=== PATIENT | male | born 1930 | race Caucasian/White ===

== ENCOUNTER 2016-09-11 11:55 | Inpatient (IN) ==
--- NOTE | 2016-09-11 12:07 | Emergency Department Note ---
General Adult HPI - General Chief complaint: Blood Pressure Problem Stated complaint: increased confusion, hypotensive Time Seen by Provider: 09/11/16 12:05 Source: other Mode of arrival: wheelchair Limitations: no limitations - History of Present Illness HPI Narrative: 87-year-old male with a history of stage IV CKD just seen at Dr. Horta's office today and referred over to the ED due to decreased level consciousness and hypotension. They had gotten blood pressures in the 70s at the time however his initial blood pressure at this time is 98 systolic. Does have a history of dementia is difficult to get a good history patient denies any signs or symptoms denies any nausea vomiting his tongue does look dry does appear to be volume depleted patient is afebrile, denies any nausea vomiting or diarrhea patient denies chest pain or shortness of breath, patient is a DNR - Related Data Home Medications Medication Instructions Recorded Confirmed carbidopa 25 mg-levodopa 100 mg 1 tab PO TID 06/11/16 09/11/16 tablet ergocalciferol (vitamin D2) 50,000 50,000 unit PO MOTH@0900 06/11/16 09/11/16 unit capsule furosemide 40 mg tablet 40 mg PO DAILY 06/11/16 09/11/16 insulin glargine 100 unit/mL 37 unit SUB-Q QAM ml 06/11/16 09/11/16 subcutaneous solution metolazone 2.5 mg tablet 2.5 mg PO MOTH@0830 06/11/16 09/11/16 Bisacodyl [Dulcolax] 10 mg MS DAILYP PRN 09/11/16 09/11/16 Isosorbide Mononitrate [Isosorbide 120 mg PO DAILY 09/11/16 09/11/16 Mononitrate ER] Magnesium Oxide 420 mg PO DAILY 09/11/16 09/11/16 Polyvinyl Alcohol [Artificial 1 drop OP QIDP PRN 09/11/16 09/11/16 Tears] Sennosides [Senna] 17.2 mg PO BID 09/11/16 09/11/16 aspirin 81 mg tablet,delayed 81 mg PO QDAY tab 09/11/16 09/11/16 release bisacodyl 5 mg tablet 5 mg PO DAILYP PRN 09/11/16 09/11/16 carvedilol 3.125 mg tablet 6.25 mg PO BIDCC tab 09/11/16 09/11/16 finasteride 5 mg tablet 5 mg PO HS 09/11/16 09/11/16 lisinopril 2.5 mg tablet 2.5 mg PO QDAY 09/11/16 09/11/16 omeprazole 40 mg capsule,delayed 40 mg PO BIDAC cap 09/11/16 09/11/16 release ondansetron HCl 4 mg tablet 4 mg PO Q8HP PRN tab 09/11/16 09/11/16 promethazine 25 mg tablet 25 mg PO DAILYP PRN tab 09/11/16 09/11/16 sertraline 100 mg tablet 100 mg PO HS 09/11/16 09/11/16 tamsulosin 0.4 mg capsule 0.4 mg PO DAILY 09/11/16 09/11/16 vit C 150 mg-vit E 30 unit-lutein 1 cap PO DAILY 09/11/16 09/11/16 5 zt-[id number] 3 150 mg capsule Allergies Allergy/AdvReac Type Severity Reaction Status Date / Time acetaminophen [From Tylenol] Allergy Unknown Unknown Unverified 09/11/16 11:30 iodine Allergy Unknown Unknown Unverified 09/11/16 11:30 nitroglycerin Allergy Unknown Unknown Unverified 09/11/16 11:30 sulfamethoxazole Allergy Unknown Unknown Verified 09/11/16 16:37 [From Bactrim] trimethoprim [From Bactrim] Allergy Unknown Unknown Verified 09/11/16 16:37 sulfameth/trimetrhoprom Allergy Unknown Unknown Uncoded 09/11/16 11:30 Review of Systems All systems ED: reviewed and negative except as stated. Constitutional: Denies: fever, chills Eyes: Denies: eye pain ENT ED: Denies: ear pain Cardiovascular: Denies: chest pain Respiratory: Denies: cough Past Medical History - Past Medical History [facility] Narrative: Family History (Last Reviewed 09/11/16 @ 11:57 by Tiny Horta MD) Mother Diabetes mellitus, type II Grandmother Diabetes mellitus, type II Sister Cancer Brother Diabetes mellitus, type II Medical History (Last Reviewed 09/11/16 @ 11:57 by Tiny Horta MD) Chronic kidney disease, stage 4 (severe) (Chronic) Macular degeneration (Chronic) Cataracts, bilateral (Chronic) Diabetes mellitus, type II (Chronic) HTN (hypertension) (Chronic) Medical history: Reports: other Surgical history ED: Reports: other (Cardiac heart stent, shoulder surgery, CABG ,) Family history: Reports: other family history (Diabetesmother. Sister cancer brother diabetes) - Social History smoking status: Never smoker Alcohol use: Reports: None Drug use: Reports: none Physical Exam - General Limitations: no limitations General appearance: alert, in no apparent distress - Head Head exam: atraumatic - Eye Eye exam: Present: normal appearance, PERRL - ENT ENT exam: normal exam, normal oropharynx - Neck Neck exam: Present: normal inspection, full ROM - Chest Chest inspection: Present: normal inspection, symmetric chest wall rise - Respiratory Respiratory exam: Present: normal lung sounds bilaterally, respiratory distress. Absent: wheezes, stridor - Cardiovascular Cardiovascular exam: Present: regular rate, normal rhythm. Absent: bradycardia , tachycardia - Abdominal Exam Abdominal exam: Present: soft. Absent: distention, tenderness - Back Exam Back exam: Present: normal inspection, full ROM. Absent: tenderness - Neurological Exam Neurological exam: Present: CN II-XII intact, reflexes normal. Absent: motor sensory deficit - Psychiatric Psychiatric exam: Present: flat affect Course Vital Signs Temperature 96.5 F 09/11/16 11:56 Pulse Rate 78 09/11/16 11:56 Respiratory Rate 16 09/11/16 11:56 Blood Pressure 93/55 09/11/16 11:56 Pulse Oximetry (%) 100 09/11/16 11:56 Temperature 97.2 F 09/12/16 04:00 Pulse Rate 68 09/11/16 23:15 Respiratory Rate 18 09/12/16 04:00 Blood Pressure 85/58 09/12/16 04:34 Pulse Oximetry (%) 100 09/12/16 04:37 Medical Decision Making - Lab Data Result diagrams: 09/12/16 04:05 09/12/16 04:05 Lab Results 09/11/16 09/11/16 09/11/16 Range/Units 12:09 12:09 12:09 WBC 7.2 (4.5-11.0) K/mcL RBC 3.37 L (4.50-5.90) M/mcL Hgb 10.4 L (13.5-16.5) g/dL Hct 30.7 L (41.0-55.0) % POC Hct (41.0-55.0) % MCV 91.1 (80.0-100.0) fL MCH 30.8 (26.0-34.0) pg MCHC 33.8 (31.0-36.0) g/dL RDW 15.8 H (11.5-14.5) % Plt Count 122 L (140-440) K/mcL MPV 7.9 (7.4-10.4) fL Total Counted 100 Seg Neutrophils % 76 (38-78) % Band Neutrophils % Not Reportable Lymphocytes % 15 (15-49) % Monocytes % (Manual) 8 (1-12) % Eosinophils % (Manual) 1 (0-7) % Platelet Estimate Decreased A (NORMAL) RBC Morphology Normal (NORMAL) VBG Lactic Acid (0.5-2.2) mmol/L POC Sodium (133-145) mmol/L POC Potassium (3.3-5.1) mmol/L POC Chloride (96-108) mmol/L POC Total CO2 (22-30) mmol/L POC BUN (8-23) mg/dl POC Creatinine (0.7-1.2) mg/dl POC Glucose (70-105) mg/dL Hemoglobin A1c 7.2 H (4.0-6.0) % HGB Estim Average Glucose 160 mg/dL POC WB Ioniz Calcium (1.16-1.32) mmol/L Total Creatine Kinase (24-195) IU/L CK-MB (CK-2) (0-4.9) ng/ml Myoglobin (28-72) ng/ml Troponin T 0.02 (0-0.03) ng/ml Urine Color Urine Appearance Urine pH (5.0-9.0) Ur Specific [place] (1.000-1.035) Urine Protein (NEG) mg/dL Urine Glucose (UA) (NEG) mg/dL Urine Ketones (NEG) mg/dL Urine Occult Blood (<0.03) mg/dL Urine Nitrate (NEG) Urine Bilirubin (NEG) mg/dL Urine Urobilinogen (NEG) mg/dL Ur Leukocyte Esterase (NEG) /uL Urine RBC (0-1) /hpf Urine WBC (0-4) /hpf Ur Squamous Epith Cells (0-4) /hpf Urine Bacteria (0) /hpf Ur Culture Indicated? 05/26/17 05/26/17 05/26/17 Range/Units 12:10 12:31 13:56 WBC (4.5-11.0) K/mcL RBC (4.50-5.90) M/mcL Hgb (13.5-16.5) g/dL Hct (41.0-55.0) % POC Hct 31.0 L (41.0-55.0) % MCV (80.0-100.0) fL MCH (26.0-34.0) pg MCHC (31.0-36.0) g/dL RDW (11.5-14.5) % Plt Count (140-440) K/mcL MPV (7.4-10.4) fL Total Counted Seg Neutrophils % (38-78) % Band Neutrophils % Lymphocytes % (15-49) % Monocytes % (Manual) (1-12) % Eosinophils % (Manual) (0-7) % Platelet Estimate (NORMAL) RBC Morphology (NORMAL) VBG Lactic Acid 1.1 (0.5-2.2) mmol/L POC Sodium 137 (133-145) mmol/L POC Potassium 5.0 (3.3-5.1) mmol/L POC Chloride 100 (96-108) mmol/L POC Total CO2 24 (22-30) mmol/L POC BUN 105 H* (8-23) mg/dl POC Creatinine 4.9 H (0.7-1.2) mg/dl POC Glucose 266 H (70-105) mg/dL Hemoglobin A1c (4.0-6.0) % HGB Estim Average Glucose mg/dL POC WB Ioniz Calcium 1.12 L (1.16-1.32) mmol/L Total Creatine Kinase 49 (24-195) IU/L CK-MB (CK-2) 1.5 (0-4.9) ng/ml Myoglobin 154 H (28-72) ng/ml Troponin T (0-0.03) ng/ml Urine Color Yellow Urine Appearance Cloudy Urine pH 7.0 (5.0-9.0) Ur Specific [place] 1.012 (1.000-1.035) Urine Protein 30 A (NEG) mg/dL Urine Glucose (UA) Negative (NEG) mg/dL Urine Ketones Neg (NEG) mg/dL Urine Occult Blood 0.03 A (<0.03) mg/dL Urine Nitrate Neg (NEG) Urine Bilirubin Neg (NEG) mg/dL Urine Urobilinogen Neg (NEG) mg/dL Ur Leukocyte Esterase 500 A (NEG) /uL Urine RBC 13 H (0-1) /hpf Urine WBC > 182 H (0-4) /hpf Ur Squamous Epith Cells 0 (0-4) /hpf Urine Bacteria 0 (0) /hpf Ur Culture Indicated? Yes Disposition Clinical Impression: Hypotension Disposition: Xfer As Inpt ([facility]) Condition: Fair
[2016-09-11 12:38] LABS: Mean Cell Volume 91.1 fL (80.0-100.0); Mean Corpuscular HGB Conc 33.8 g/dL (31.0-36.0); Mean Corpuscular Hemoglobin 30.8 pg (26.0-34.0); Platelet Count 122 K/mcL (140-440); RBC 3.37 M/mcL (4.50-5.90); Red Cell Distribution Width 15.8 % (11.5-14.5)
--- NOTE | 2016-09-11 12:49 | XRay Report ---
CLINICAL INFORMATION: History of ischemic heart disease. Decreased level consciousness COMPARISON: 05/08/2005 FINDINGS: The heart is markedly enlarged. Sternotomy changes noted. Mediastinum is unremarkable. The pulmonary vessels are mildly distended, but there is no edema. There is minor airspace disease in both medial bases - likely atelectasis. No effusions. IMPRESSION: Borderline CHF or volume overload. Minor right basilar atelectasis Interpreted and Authenticated by: Dominguez Payton 09/11/16
[2016-09-11 13:08] LABS: Appearance,Urine CLOUDY; Bacteria,Urine 0 /hpf (0); Bilirubin,Urine NEG (NEG); Color,Urine YELLOW; Glucose,Urine (UA) NEGATIVE (NEG); Leukocyte Esterase,Urine 500 /uL (NEG); Nitrate,Urine NEG (NEG); Protein,Urine 30 mg/dL (NEG); Specific Gravity,Urine 1.012 (1.000-1.035); Urine Blood 0.03 mg/dL (<0.03); Urine RBC 13 /hpf (0-1); Urine Squamous Epithelial Cell 0 /hpf (0-4); Urine WBC > 182 /hpf (0-4); Urobilinogen,Urine NEG (NEG)
[2016-09-11 13:26] LABS: Creatine Kinase MB 1.5 ng/ml (0-4.9); Myoglobin 154 ng/ml (28-72)
[2016-09-11 13:26] LABS: Eosinophils % (Manual) 1 % (0-7); Lymphocytes % 15 % (15-49); Monocytes % (Manual) 8 % (1-12); Platelet Estimate DECREASED (NORMAL); RBC Morphology NORMAL (NORMAL); Segmented Neutrophils % 76 % (38-78)
[2016-09-11 13:36] LABS: Creatine Kinase 49 IU/L (24-195)
[2016-09-11] MEDS ORDERED: LEVOFLOXACIN 500 MG/100 ML BAG IV ONE (13:46)
[2016-09-11] MEDS ORDERED: NOREPINEPHRINE BITARTRATE 16 MG in 0.9 % SODIUM CHLORIDE 234 ML IV SCH (14:00)
[2016-09-11] MEDS ORDERED: 0.9 % SODIUM CHLORIDE 250 ML IV SCH (14:00)
--- NOTE | 2016-09-11 16:17 | Internal Med History&Physical ---
Medical - H&P: [facility] Patient information: Note initiated : 09/11/16 at 4:07 pm Service Date, if different from initiated Date: [] Patient: Kwame Oconnor y/o M admitted on for increased confusion, hypotensive. Chief Complaint: [] History of present illness: Mr. Oconnor is a year old male with multiple medical issues, CKD< DM< HTN, HLD , Parkinson disease, Dementia, [facility] [place] resident, [facility] seen [facility] the [facility] and noted to have worsening creat and hypotension. The patient also has altered mentation, and was therefore sent to the ER The patient is demented and did not complain of any problem, the patients daughter who reports herself to be POA notes that she was called by the nephrology clinc and given an update on his condition noting that he was being sent to the ER. She noted that the patient is DNR and did not want any aggressive interventions, the patient is ok with antibiotics and meds through peripheral line, but declined central line, or intubation, BIPAP ok. She notes that patient at baseline can talk and crack jokes, but is demented. In the ER the patient was noted to be confused, hypotensive, his CXR suggestive for possible chf, ua positive for UTI, normal lactate. Patient was given IV fluids, IV levofloxacin and was admitted to the hospital for further management. ROS unobtainable: due to mental status Medical - H&P: H Medical history: Medical History (Last Reviewed 09/11/16 @ 11:57 by Tiny Horta MD) Cataracts, bilateral (Chronic) Chronic kidney disease, stage 4 (severe) (Chronic) Diabetes mellitus, type II (Chronic) HTN (hypertension) (Chronic) Macular degeneration (Chronic) Surgical history: Past Surgical History (Last Reviewed 09/11/16 @ 11:57 by Tiny Horta MD) History of heart artery stent (Chronic) History of shoulder surgery (Chronic) Hx of CABG (Chronic) Family history: reviewed and not pertinent Medical - H&P: Meds Home Medications Medication Instructions Recorded Confirmed Type carbidopa 25 mg-levodopa 100 mg 1 tab PO TID 06/11/16 09/11/16 History tablet ergocalciferol (vitamin D2) 50,000 50,000 unit PO QWEEK 06/11/16 09/11/16 History unit capsule furosemide 40 mg tablet 40 mg PO QDAY 06/11/16 09/11/16 History insulin glargine 100 unit/mL 37 unit SUB-Q QAM ml 06/11/16 09/11/16 History subcutaneous solution isosorbide dinitrate 30 mg tablet 120 mg PO QDAY tab 06/11/16 09/11/16 History magnesium oxide 400 mg capsule 400 mg PO QDAY 06/11/16 09/11/16 History metolazone 2.5 mg tablet 2.5 mg PO .COMPLEX 06/11/16 09/11/16 History artifi.tears(hypromellose)(PF) OPHTHALMIC 07/22/16 09/11/16 History aspirin 81 mg tablet,delayed 81 mg PO QDAY tab 09/11/16 09/11/16 History release bisacodyl 5 mg tablet 5 mg PO ONCE PRN 09/11/16 09/11/16 History carvedilol 3.125 mg tablet 6.25 mg PO BID tab 09/11/16 09/11/16 History finasteride 5 mg tablet 5 mg PO QDAY 09/11/16 09/11/16 History lisinopril 2.5 mg tablet 2.5 mg PO QDAY 09/11/16 09/11/16 History omeprazole 40 mg capsule,delayed 40 mg PO BID cap 09/11/16 09/11/16 History release ondansetron HCl 4 mg tablet 4 mg PO Q8H PRN tab 09/11/16 09/11/16 History promethazine 25 mg tablet 25 mg PO ONCE PRN tab 09/11/16 09/11/16 History sertraline 100 mg tablet 100 mg PO QDAY 09/11/16 09/11/16 History tamsulosin 0.4 mg capsule 0.4 mg PO QDAY 09/11/16 09/11/16 History vit C 150 mg-vit E 30 unit-lutein 1 cap PO QDAY 09/11/16 09/11/16 History 5 wz-nkrldqcx-jjkfy 3 150 mg capsule Allergies Allergy/AdvReac Type Severity Reaction Status Date / Time acetaminophen [From Tylenol] Allergy Unknown Unknown Unverified 09/11/16 11:30 iodine Allergy Unknown Unknown Unverified 09/11/16 11:30 nitroglycerin Allergy Unknown Unknown Unverified 09/11/16 11:30 sulfameth/trimetrhoprom Allergy Unknown Unknown Uncoded 09/11/16 11:30 Medical - H&P: Exam - Constitutional Vitals: Temp Pulse Resp BP Pulse Ox 96.5 F 61 22 88/47 100 09/11/16 11:56 09/11/16 15:31 09/11/16 15:31 09/11/16 15:31 09/11/16 15:31 Exam: GENERAL: The patient is a well-developed, well-nourished in no apparent distress. Is alert and oriented x1. VITAL SIGNS: Reviewed and as noted elsewhere. HEENT: Head is normocephalic and atraumatic. Extraocular muscles are intact. Pupils are equal, round, and reactive to light. Nares appeared normal. Mouth appears any without lesions. Mucous membranes are dry. NECK: Normal to inspection, Supple, No lymphadenopathy or thyromegaly. LUNGS: Air entry equal on both sides, no wheezing, crackles or rhonchi noted. No accessory muscles of respiration HEART: Regular rate and rhythm normal, S1 and S2 heard, no Gallop, S3 or Rub Noted, No Gross murmur heard. No pedal edema, no JVP distention. ABDOMEN: Soft, nontender, and nondistended. Positive bowel sounds. No hepatosplenomegaly was noted. EXTREMITIES: No cyanosis, clubbing, rash, lesions or edema. NEUROLOGIC: Cranial nerves II through XII are grossly intact. Motor and Sensory System Grossly Intact PSYCHIATRIC: Drowsy, not agitated, no anxious. SKIN: No ulceration, No jaundice, No uriticarial rash noted. Medical - H&P: Reslt - Labs CBC & Chem 7: 09/11/16 12:09 Labs: Short CBC 09/11/16 Range/Units 12:09 WBC 7.2 (4.5-11.0) K/mcL Hgb 10.4 L (13.5-16.5) g/dL Hct 30.7 L (41.0-55.0) % Plt Count 122 L (140-440) K/mcL Cardiac Enzymes 09/11/16 09/11/16 Range/Units 12:09 12:10 Total Creatine Kinase 49 (24-195) IU/L CK-MB (CK-2) 1.5 (0-4.9) ng/ml Troponin T 0.02 (0-0.03) ng/ml Urine 09/11/16 Range/Units 12:31 Urine Color Yellow Urine Appearance Cloudy Urine pH 7.0 (5.0-9.0) Ur Specific [place] 1.012 (1.000-1.035) Urine Protein 30 A (NEG) mg/dL Urine Glucose (UA) Negative (NEG) mg/dL Medical - H&P: A/P - Narrative A/P Narrative: A/P Urinary tract Infection: Treat with IV Rocephin, await blood and urine culture Sepsis with hypotension: Patient to get adequate resuscitation with Fluids, ok to use pressors if BP remains low, Patients family aware of risk of using pressors from peripheral line, but they prefer not to do invasive methods. Dementia/ Parkinson disease: Resume home meds, fall risk CAD/ CHF : S/p CABG, resume home meds once verified, hold hypotensive medications, Patient cxr although reported as chf, clinically he appears very dry. No pedal edema, no jvp distention. BPH : Resume home meds finasterid and flomax, nava in place DM: Lantus 10 units, Sliding scale insulin Acute on chr renal failure: Worseing renal failure from creat of around 3 to > 4 in 6 weeks, IV fluids for now, automotive engineer aware patient in house. Code DNR Diet Cardiac, Mech soft, Diabetic, ST eval OT/ PT eval Prognosis: Guarded, pt family aware that patient has a risk of not making it, patient does not want any aggressive measures to be done, no lines no mech ventilation. Social History - Social History marital status: occupational status: retired - Tobacco smoking status: Never smoker - Alcohol alcohol intake frequency: does not drink - Substance use substance use type: does not use
[2016-09-11] MEDS: cefTRIAXone 2 GM in DEXTROSE 5% IN WATER 50 ML IV SCH (16:30)
[2016-09-11] MEDS ORDERED: DEXTROSE 50% 50 ML VIAL IV PRN (16:31)
[2016-09-11] MEDS ORDERED: NALOXONE HCL 0.4 MG/ML VIAL IV PRN (16:31)
[2016-09-11] MEDS ORDERED: ACETAMINOPHEN 325 MG TABLET PO PRN (16:31)
[2016-09-11] MEDS ORDERED: ONDANSETRON 4 MG/2 ML VIAL IV PRN (16:31)
[2016-09-11] MEDS ORDERED: HYDROcodone/APAP 5/325MG TABLET PO PRN (16:31)
[2016-09-11] MEDS ORDERED: 0.9 % SODIUM CHLORIDE 500 ML IV ONE (16:31)
[2016-09-11] MEDS: PANTOPRAZOLE 40 MG TABLET PO SCH (16:53)
[2016-09-11 18:48] LABS: Hemoglobin A1C 7.2 % HGB (4.0-6.0)
[2016-09-11] MEDS: IPRATROPIUM/ALBUTEROL 3 ML AMPUL.NEB NEB SCH (19:57)
[2016-09-11] MEDS ORDERED: SENNOSIDES 1 TABLET PO PRN (21:00)
[2016-09-11] MEDS: 0.9 % SODIUM CHLORIDE 1,000 ML IV SCH (21:24)
[2016-09-11] MEDS: INSULIN LISPRO 1 UNIT/0.01 ML UNIT SQ SCH (21:46)
[2016-09-11] MEDS: FINASTERIDE 5 MG TABLET PO SCH (21:48)
[2016-09-11] MEDS: SERTRALINE 50 MG TABLET PO SCH (21:49)
[2016-09-11] MEDS: INSULIN GLARGINE, HUMAN 1 UNIT/0.01 ML SQ SCH (21:49)
[2016-09-11] MEDS: CARBIDOPA/LEVODOPA 25/100 TABLET PO SCH (21:49)
[2016-09-11] MEDS: HEPARIN 5,000 UNIT/ML VIAL SQ SCH (21:50)
[2016-09-12] MEDS: IPRATROPIUM/ALBUTEROL 3 ML AMPUL.NEB NEB SCH ×7 (00:11→23:11)
[2016-09-12 05:41] LABS: Basophils # (Auto) 0 K/mcL (0.0-0.3); Basophils % (Auto) 0.2 % (0.0-2.0); Eosinophils # (Auto) 0.1 K/mcL (0.0-0.7); Eosinophils % (Auto) 1.8 % (0.0-7.0); Granulocytes % (Auto) 69.3 % (38.0-78.0); Lymphocytes % (Auto) 18.4 % (15.5-49.0); Mean Cell Volume 90.9 fL (80.0-100.0); Mean Corpuscular HGB Conc 34.4 g/dL (31.0-36.0); Mean Corpuscular Hemoglobin 31.2 pg (26.0-34.0); Monocytes # (Auto) 0.6 K/mcL (0.1-0.9); Monocytes % (Auto) 10.3 % (1.0-12.0); Platelet Count 95 K/mcL (140-440); RBC 3.08 M/mcL (4.50-5.90); Red Cell Distribution Width 16.2 % (11.5-14.5)
[2016-09-12 06:10] LABS: ALT/SGPT < 5 U/l (0-40); Albumin 3.5 gm/dL (3.2-5.2); Albumin/Globulin Ratio 1.3 (1.0-2.3); Alkaline Phosphatase 85 U/L (39-117); Bilirubin,Direct < 0.2 mg/dL (0.0-0.3); Blood Urea Nitrogen 82 mg/dl (8-23); Gamma Glutamyl Transpeptidase 15 U/L (8-61); Magnesium 1.6 mg/dL (1.6-2.5); Uric Acid 10.6 mg/dL (2.5-8.0)
[2016-09-12] MEDS: INSULIN LISPRO 1 UNIT/0.01 ML UNIT SQ SCH ×4 (07:13→20:18)
[2016-09-12] MEDS: PANTOPRAZOLE 40 MG TABLET PO SCH ×2 (07:14→17:30)
[2016-09-12] MEDS: cefTRIAXone 2 GM in DEXTROSE 5% IN WATER 50 ML IV SCH (08:34)
[2016-09-12] MEDS ORDERED: 0.9 % SODIUM CHLORIDE 500 ML IV ONE (08:43)
[2016-09-12] MEDS: CARBIDOPA/LEVODOPA 25/100 TABLET PO SCH ×3 (09:02→20:19)
[2016-09-12] MEDS: HEPARIN 5,000 UNIT/ML VIAL SQ SCH ×2 (09:02→20:21)
[2016-09-12] MEDS: TAMSULOSIN 0.4 MG CAPSULE PO SCH (09:03)
[2016-09-12] MEDS: 0.9 % SODIUM CHLORIDE 1,000 ML IV SCH (11:06)
--- NOTE | 2016-09-12 11:20 | Internal Med Progress Note ---
Medical - PN: Subj Patient information: Note initiated : 09/12/16 at 11:17 am Service Date, if different from initiated Date: [] Patient: Kwame Oconnor y/o M admitted on 09/11/16 for increased confusion, hypotensive. Chief Complaint: [] Interval history: Mr. Oconnor is a year old male with multiple medical issues, CKD< DM< HTN, HLD , Parkinson disease, Dementia, [facility] [place] resident, was seen at the [facility] clinic and noted to have worsening creat and hypotension. The patient also has altered mentation, and was therefore sent to the ER The patient is demented and did not complain of any problem, the patients daughter who reports herself to be POA notes that she was called by the nephrology clinc and given an update on his condition noting that he was being sent to the ER. She noted that the patient is DNR and did not want any aggressive interventions, the patient is ok with antibiotics and meds through peripheral line, but declined central line, or intubation, BIPAP ok. She notes that patient at baseline can talk and crack jokes, but is demented. In the ER the patient was noted to be confused, hypotensive, his CXR suggestive for possible chf, ua positive for UTI, normal lactate. Patient was given IV fluids, IV levofloxacin and was admitted to the hospital for further management. 09/12: Patient seen examined, awake and obeys some commands, answers some questions, not much change since yesterday in terms of his mental status, he continues to be on IV fluids and IV antibiotics. BP is stable but low normal off his home meds, his oxygen sats 100% on room air. Renal function deteriorated mildly. Patient did not need pressors. Pertinent ROS: unable due to mental status. - Constitutional Vitals: Vital Signs Temp Pulse Resp BP Pulse Ox 99.2 F 69 18 104/51 100 09/12/16 08:00 09/12/16 08:00 09/12/16 08:00 09/12/16 08:00 09/12/16 04:37 Period Temp Pulse Resp BP Sys/Campbell Pulse Ox Last 24 Hr 96.5 F-99.2 F 63-76 16-20 85-132/49-111 96-100 Intake and Output 09/11/16 09/12/16 09/12/16 21:59 05:59 13:59 Intake Total 600 / 700 270 / 270 1600 / 1600 Output Total 1525 / 1525 Balance 600 / 700 -1255 / -1255 1600 / 1600 Weight 245 lb 14.4 oz Intake & Output: Intake & Output 09/11/16 09/12/16 09/12/16 21:59 05:59 13:59 Intake Total 600 / 700 270 / 270 1600 / 1600 Output Total 1525 / 1525 Balance 600 / 700 -1255 / -1255 1600 / 1600 Weight 245 lb 14.4 oz Intake: IV 600 / 600 1000 / 1000 Sodium Chloride 0.9% 1, 1000 / 1000 000 ml @ 75 mls/hr IV . [id number] [facility] Rx#:[id number] Sodium Chloride 0.9% 250 50 / 50 ml @ 20 mls/hr IV . [id number] [facility] Rx#:[id number] Sodium Chloride 0.9% 500 500 / 500 ml @ Wide Open IV [facility] Rx#:[id number] Rocephin 2 gm In Dextrose 50 / 50 0 / 0 5% in Water 50 ml @ 100 mls/hr IV DAILY [facility] Rx#: [id number] Oral 270 / 270 600 / 600 Output: Urine Catheter Amount 1525 / 1525 Other: Meal snack Breakfast Percent of Meal Consumed 100% 100% Feeding Ability Assist with Tray Set Up Exam: Constitutional; Afebrile, awake, not in distress, Eyes- No icterus, , No periorbital swelling Ears- Ext ear normal, hearing hard to conversation. Neck- Midline trachea, supple Respiratory system: Air Entry equal on both sides, No crackles or wheezing, no rhonchi. CVS- Rate rhythm regular, S1,S2 heard, no gallop, no rub. Abdomen- Soft nontender abdomen, no organomegaly, no tenderness, no guarding or rigidity, TRANSCRIPTION SPECIALIST- AOOx1, moving all extremities, no gross focal deficit noted. rigid facies, Medical - PN: Obj Da - Labs CBC & Chem 7: 09/12/16 04:05 09/12/16 04:05 Labs: Abnormal Lab Results 09/12/16 09/12/16 04:05 04:05 RBC 3.08 L Hgb 9.6 L Hct 28.0 L RDW 16.2 H Plt Count 95 L Lymph # 1.0 L BUN 82 H Creatinine 4.3 H Glucose 112 H Uric Acid 10.6 H Meds: Medications Acetaminophen (Tylenol) 650 mg PO Q6HP PRN PRN Reason: PAIN/FEVER > 101 Acetaminophen/Hydrocodone Bitart ([employer] 5/325mg) 1 tab PO Q4HP PRN PRN Reason: Pain Albuterol/Ipratropium (Duoneb) 3 ml NEB Q4HRT [facility] Last Admin: 09/12/16 07:15 Dose: 3 ml Carbidopa/Levodopa (Sinemet 25/100) 1 tab PO TID [facility] Last Admin: 09/12/16 09:02 Dose: 1 tab Dextrose (Dextrose 50%) 0 ml IV UD PRN PRN Reason: Hypoglycemia Diagnostic Test (Pha) (Accu-Chek) 1 each FS ACHS [facility] Last Admin: 09/12/16 07:12 Dose: 1 each Finasteride (Proscar) 5 mg PO HS [facility] Last Admin: 09/11/16 21:48 Dose: 5 mg Heparin Sodium (Porcine) (Heparin) 5,000 unit SQ Q12 [facility] Last Admin: 09/12/16 09:02 Dose: 5,000 unit Norepinephrine Bitartrate 16 (mg/ Sodium Chloride) 250 mls @ 9.37 mls/hr IV Q24HP PRN; Protocol; 10 MCG/MIN PRN Reason: TITRATE TO KEEP MAP > 65 Sodium Chloride (Sodium Chloride 0.9%) 250 mls @ 20 mls/hr IV .[id number] [facility] Ceftriaxone Sodium 2 gm/ (Dextrose) 50 mls @ 100 mls/hr IV DAILY [facility] Last Infusion: 09/12/16 09:00 Dose: 100 mls/hr Sodium Chloride (Sodium Chloride 0.9%) 250 mls @ 20 mls/hr IV .[id number] [facility] Sodium Chloride (Sodium Chloride 0.9%) 1,000 mls @ 75 mls/hr IV .[id number] [facility] Last Admin: 09/12/16 11:06 Dose: 75 mls/hr Insulin Glargine (Lantus) 10 unit SQ HS [facility] Last Admin: 09/11/16 21:49 Dose: 10 unit Insulin Human Lispro (Humalog) 0 unit SQ ACHS [facility] PRN Reason: Protocol Last Admin: 09/12/16 07:13 Dose: 2 unit Naloxone HCl (Narcan) 0.1 mg IV Q2MIN PRN PRN Reason: Opiate Reversal Ondansetron HCl (Zofran) 4 mg IV Q4HP PRN PRN Reason: Nausea And Vomiting Pantoprazole Sodium (Protonix) 40 mg PO BIDAC [facility] Last Admin: 09/12/16 07:14 Dose: 40 mg Senna (Senokot) 2 tab PO HSP PRN PRN Reason: Constipation Sertraline HCl (Zoloft) 100 mg PO HS [facility] Last Admin: 09/11/16 21:49 Dose: 100 mg Tamsulosin HCl (Flomax) 0.4 mg PO DAILY [facility] Last Admin: 09/12/16 09:03 Dose: 0.4 mg Medical - PN: A/P - Time Spent With Patient Total time spent is greater than 50% in coordination of care (as documented) at patient's floor/unit and/or counseling patient: - Narrative A/P Narrative: Urinary tract Infection: Treat with IV Rocephin, await blood and urine culture Sepsis with hypotension: Bp improving, no need for pressors, continue with gentle hydration, lactic acid normal. Dementia/ Parkinson disease: Resume home meds, fall risk. CAD/ CHF : S/p CABG, : Clincially dry, aware of x ray readings, hold home meds for now, given infection and worsening renal failure, will proceed with gentle hydration. Patient 100% osat on room air. BPH : Resume home meds finasteride and Flomax, Reyes in place DM: Lantus 10 units, Sliding scale insulin, glucose at goal. Acute on chr renal failure: mild worsening of renal failure since admission. This is a lab study, on admission we had a POC study. nephrology notes that patient is not a candidate for dialysis. Continue with Gentle hydration. Code DNR Diet Cardiac, Mech soft, Diabetic, ST eval awaited. OT/ PT eval Prognosis: Guarded, will try to see if he responds with antibiotics and hydration. If worsens will discuss need for palliative care. Medical - PN: Qual - VTE Deep Vein Thrombosis/Pulmonary Embolism Present on Admission: No
[2016-09-12] MEDS ORDERED: NOREPINEPHRINE BITARTRATE 16 MG in 0.9 % SODIUM CHLORIDE 234 ML IV PRN (14:00)
--- NOTE | 2016-09-12 18:09 | Nephrology Consult Note ---
History of Present Illness - Reason for Consult Patient information: Note initiated : 09/12/16 at 6:03 pm Service Date, if different from initiated Date: [] Patient: Kwame Oconnor a y/o M admitted on 09/11/16 for increased confusion, hypotensive. Chief Complaint: [] Consult date: 09/12/16 chronic renal failure Requesting physician: Elizabeth Crain - Chief Complaint hypotension - History of Present Illness Mr Elvin is a 88 y/o white male with PMH of DM type 2, CAD, CHF, CKD stage IV and other multiple medical issues who is admitted with UTI Patient was seen by me yesterday in the clinic, he was noted to have hypotension and worsening of his mental status and hence was sent to ED. I called the SNF and was told that his mental status had declined recently but they reported his BP runs 100-120 systolic, given change in clinical condition he was sent to ER In ED work up was significant for UTI, his renal function was also worse as compared to his baseline His daughter who is his POA requested only limited interventions, patient's living will/POLST also states the same, she agreed to IV antibiotics, IVF and pressors if needed no aggressive intubation, declined halfway hospital stay Patient on exam today remains confused, follows simple commands though unable to provide any meaningful information Review of Systems ROS unobtainable: due to mental status Past History Past medical history: DM type 2 CAD/CHF s/p 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 Parkinson's disease Dementia Past surgical history: h/o CABG Past family history: Not pertinent Past social history: lives in SNF has a daughter who is his POA, she lives in [place] no current addictions Medications and Allergies Home Medications Medication Instructions Recorded Confirmed Type carbidopa 25 mg-levodopa 100 mg 1 tab PO TID 06/11/16 09/11/16 History tablet ergocalciferol (vitamin D2) 50,000 50,000 unit PO MOTH@0900 06/11/16 09/11/16 History unit capsule furosemide 40 mg tablet 40 mg PO DAILY 06/11/16 09/11/16 History insulin glargine 100 unit/mL 37 unit SUB-Q QAM ml 06/11/16 09/11/16 History subcutaneous solution metolazone 2.5 mg tablet 2.5 mg PO MOTH@0830 06/11/16 09/11/16 History Bisacodyl [Dulcolax] 10 mg [place] DAILYP PRN 09/11/16 09/11/16 History Isosorbide Mononitrate [Isosorbide 120 mg PO DAILY 09/11/16 09/11/16 History Mononitrate ER] Magnesium Oxide 420 mg PO DAILY 09/11/16 09/11/16 History Polyvinyl Alcohol [Artificial 1 drop OP QIDP PRN 09/11/16 09/11/16 History Tears] Sennosides [Senna] 17.2 mg PO BID 09/11/16 09/11/16 History aspirin 81 mg tablet,delayed 81 mg PO QDAY tab 09/11/16 09/11/16 History release bisacodyl 5 mg tablet 5 mg PO DAILYP PRN 09/11/16 09/11/16 History carvedilol 3.125 mg tablet 6.25 mg PO BIDCC tab 09/11/16 09/11/16 History finasteride 5 mg tablet 5 mg PO HS 09/11/16 09/11/16 History lisinopril 2.5 mg tablet 2.5 mg PO QDAY 09/11/16 09/11/16 History omeprazole 40 mg capsule,delayed 40 mg PO BIDAC cap 09/11/16 09/11/16 History release ondansetron HCl 4 mg tablet 4 mg PO Q8HP PRN tab 09/11/16 09/11/16 History promethazine 25 mg tablet 25 mg PO DAILYP PRN tab 09/11/16 09/11/16 History sertraline 100 mg tablet 100 mg PO HS 09/11/16 09/11/16 History tamsulosin 0.4 mg capsule 0.4 mg PO DAILY 09/11/16 09/11/16 History vit C 150 mg-vit E 30 unit-lutein 1 cap PO DAILY 09/11/16 09/11/16 History 5 im-zynporqz-yracr 3 150 mg capsule Allergies Allergy/AdvReac Type Severity Reaction Status Date / Time acetaminophen [From Tylenol] Allergy Unknown Unknown Unverified 09/11/16 11:30 iodine Allergy Unknown Unknown Unverified 09/11/16 11:30 nitroglycerin Allergy Unknown Unknown Unverified 09/11/16 11:30 sulfamethoxazole Allergy Unknown Unknown Verified 09/11/16 16:37 [From Bactrim] trimethoprim [From Bactrim] Allergy Unknown Unknown Verified 09/11/16 16:37 sulfameth/trimetrhoprom Allergy Unknown Unknown Uncoded 09/11/16 11:30 Exam - Vital Signs Vital signs: Temp Pulse Resp BP Pulse Ox 99.2 F 71 18 96/42 95 09/12/16 16:00 09/12/16 16:00 09/12/16 15:10 09/12/16 16:00 09/12/16 16:00 - General Appearance General appearance: appears started age, chronically ill EENT: mucous membranes moist Neck: no JVD Respiratory: clear Cardiology: mid-systolic murmur, no edema, normal S1, normal S2 Gastrointestinal: no tenderness, no guarding, no masses Integumentary: warm and dry Neurologic: confused Musculoskeletal: no erythema, no cyanosis Results - Lab Results 09/12/16 04:05 09/12/16 04:05 Most recent lab results Calcium 8.6 mg/dl (8.6-10.4) 09/12/16 04:05 Phosphorus 3.9 mg/dL (2.7-4.5) 09/12/16 04:05 Magnesium 1.6 mg/dL (1.6-2.5) 09/12/16 04:05 Assessment and Plan (1) Acute on chronic renal failure Patient with acute on c hronic renal failure baseline s.creatinien around 3-3.5 BUN 105 yesterday, s.creatinine 4.3, worsening likely from volume depletion and hypotension agree with holding diuretics, gentle IV hydration with careful monitoring of respiratory status would hold metolazone as outpt and continue only on home dose of furosemide once stable not a dialysis candidate, discussed with daughter, she agrees ad patient also wished not be on dialysis if needed ever Given his medical issues, dementia, Parksinson's, CHF he would not benefit from such an intervention monitor I/O, daily weights dose meds per egfr If there is change in patient's medical condition or patient continues to need prolonged hospitalisation we would need to readdress goals of care as daughter did not want this UTI on ceftriaxone, cultures pending anemia: etiology multifactorial will follow along Status: Acute
[2016-09-12] MEDS: INSULIN GLARGINE, HUMAN 1 UNIT/0.01 ML SQ SCH (20:18)
[2016-09-12] MEDS: SERTRALINE 50 MG TABLET PO SCH (20:19)
[2016-09-12] MEDS: FINASTERIDE 5 MG TABLET PO SCH (20:19)
[2016-09-12] MEDS: 0.9 % SODIUM CHLORIDE 250 ML IV SCH ×3 (20:21→20:22)
[2016-09-13] MEDS: 0.9 % SODIUM CHLORIDE 1,000 ML IV SCH ×2 (00:16→15:16)
[2016-09-13] MEDS: IPRATROPIUM/ALBUTEROL 3 ML AMPUL.NEB NEB SCH ×3 (03:37→07:30)
[2016-09-13 05:49] LABS: Basophils # (Auto) 0 K/mcL (0.0-0.3); Basophils % (Auto) 0.3 % (0.0-2.0); Eosinophils # (Auto) 0.1 K/mcL (0.0-0.7); Mean Cell Volume 90.7 fL (80.0-100.0); Mean Corpuscular HGB Conc 34.2 g/dL (31.0-36.0); Monocytes # (Auto) 0.5 K/mcL (0.1-0.9); Monocytes % (Auto) 8.7 % (1.0-12.0); Platelet Count 89 K/mcL (140-440); RBC 2.94 M/mcL (4.50-5.90); Red Cell Distribution Width 16.5 % (11.5-14.5)
[2016-09-13 06:13] LABS: ALT/SGPT < 5 U/l (0-40); Albumin 3.2 gm/dL (3.2-5.2); Albumin/Globulin Ratio 1.2 (1.0-2.3); Alkaline Phosphatase 79 U/L (39-117); Bilirubin,Direct < 0.2 mg/dL (0.0-0.3); Blood Urea Nitrogen 74 mg/dl (8-23); Gamma Glutamyl Transpeptidase 15 U/L (8-61); Magnesium 1.6 mg/dL (1.6-2.5); Uric Acid 9.9 mg/dL (2.5-8.0)
[2016-09-13] MEDS: 0.9 % SODIUM CHLORIDE 250 ML IV SCH ×2 (06:24)
[2016-09-13] MEDS: HEPARIN 5,000 UNIT/ML VIAL SQ SCH ×2 (07:35→21:03)
[2016-09-13] MEDS: CARBIDOPA/LEVODOPA 25/100 TABLET PO SCH ×3 (07:36→21:03)
[2016-09-13] MEDS: INSULIN LISPRO 1 UNIT/0.01 ML UNIT SQ SCH ×5 (07:36→21:26)
[2016-09-13] MEDS: TAMSULOSIN 0.4 MG CAPSULE PO SCH (07:36)
[2016-09-13] MEDS: PANTOPRAZOLE 40 MG TABLET PO SCH ×2 (08:08→17:31)
[2016-09-13] MEDS: cefTRIAXone 2 GM in DEXTROSE 5% IN WATER 50 ML IV SCH (09:25)
[2016-09-13] MEDS ORDERED: IPRATROPIUM/ALBUTEROL 3 ML AMPUL.NEB NEB PRN ×2 (10:15→14:41)
[2016-09-13] MEDS ORDERED: 0.45 % SODIUM CHLORIDE 1,000 ML IV SCH (12:30)
--- NOTE | 2016-09-13 12:38 | Internal Med Progress Note ---
Medical - PN: Subj Patient information: Note initiated : 09/13/16 at 12:29 pm Service Date, if different from initiated Date: [] Patient: Kwame Oconnor y/o M admitted on 09/11/16 for increased confusion, hypotensive. Chief Complaint: [] Interval history: Mr. Oconnor is a year old male with multiple medical issues, CKD< DM< HTN, HLD , Parkinson disease, Dementia, [place], [facility] and noted to have worsening creat and hypotension. The patient also has altered mentation, and was therefore sent to the ER The patient is demented and did not complain of any problem, the patients daughter who reports herself to be POA notes that she was called by the nephrology clinc and given an update on his condition noting that he was being sent to the ER. She noted that the patient is DNR and did not want any aggressive interventions, the patient is ok with antibiotics and meds through peripheral line, but declined central line, or intubation, BIPAP ok. She notes that patient at baseline can talk and crack jokes, but is demented. In the ER the patient was noted to be confused, hypotensive, his CXR suggestive for possible chf, ua positive for UTI, normal lactate. Patient was given IV fluids, IV levofloxacin and was admitted to the hospital for further management. 09/12: Patient seen examined, awake and obeys some commands, answers some questions, not much change since yesterday in terms of his mental status, he continues to be on IV fluids and IV antibiotics. BP is stable but low normal off his home meds, his oxygen sats 100% on room air. Renal function deteriorated mildly. Patient did not need pressors. 09/13 Pt seen examined, demented, but answers some questions, did not answer any question to me today, remains at near baseline. his renal function is better, his bp is tenous, but always has had low normal bp, the patient is off oxygen and lying comfortably in bed. he had some aggressive behavoiour towards the female staff yesterday. The patient is stable to be moved to [facility] surg Plan to d/c in AM or day after (given long weekend) back to his NH Pertinent ROS: unable due to mental status - Constitutional Vitals: Vital Signs Temp Pulse Resp BP Pulse Ox 98.0 F 76 18 120/73 96 09/13/16 11:54 09/13/16 11:54 09/13/16 11:54 09/13/16 11:54 09/13/16 11:54 Period Temp Pulse Resp BP Sys/Campbell Pulse Ox Last 24 Hr 97.8 F-99.2 F 69-82 16-20 71-120/30-78 95-100 Intake and Output 09/12/16 09/13/16 09/13/16 21:59 05:59 13:59 Intake Total 500 / 500 1286 / 1286 230 / 230 Output Total 800 / 800 1450 / 1450 Balance -300 / -300 -164 / -164 230 / 230 Weight 248 lb 3.2 oz Intake & Output: Intake & Output 09/12/16 09/13/16 09/13/16 21:59 05:59 13:59 Intake Total 500 / 500 1286 / 1286 230 / 230 Output Total 800 / 800 1450 / 1450 Balance -300 / -300 -164 / -164 230 / 230 Weight 248 lb 3.2 oz Intake: IV 986 / 986 50 / 50 Sodium Chloride 0.9% 1, 986 / 986 000 ml @ 75 mls/hr IV . [id number] [facility] Rx#:[id number] Rocephin 2 gm In Dextrose 50 / 50 5% in Water 50 ml @ 100 mls/hr IV DAILY [facility] Rx#: [id number] Oral 500 / 500 300 / 300 180 / 180 Output: Urine Catheter Amount 800 / 800 1450 / 1450 Other: Meal Dinner snack Percent of Meal Consumed 100% 50% Feeding Ability Assist with Tray Set Up # of times incontinent of 1 Bowels Exam: Constitutional; Afebrile, cooperative, alert, not in distress. lying comfortably in bed, sleeping most of the time. Eyes- No icterus, , No periorbital swelling Ears- Ext ear normal, hearing normal to conversation. Neck- Midline trachea, supple Respiratory system: Air Entry equal on both sides, No crackles or wheezing, no rhonchi. CVS- Rate rhythm regular, S1,S2 heard, no gallop, no rub. Abdomen- Soft nontender abdomen, no organomegaly, no tenderness, no guarding or rigidity, [employer]- AOOx0, moving all extremities, no gross focal deficit noted. Medical - PN: Obj Da - Labs CBC & Chem 7: 09/13/16 04:05 09/13/16 04:05 Labs: Abnormal Lab Results 09/13/16 09/13/16 09/12/16 04:05 04:05 04:05 RBC 2.94 L Hgb 9.1 L Hct 26.6 L RDW 16.5 H Plt Count 89 L Lymph # 1.0 L Carbon Dioxide 21 L BUN 74 H 82 H Creatinine 4.0 H 4.3 H Glucose 155 H 112 H Uric Acid 9.9 H 10.6 H Calcium 8.5 L 09/12/16 04:05 RBC 3.08 L Hgb 9.6 L Hct 28.0 L RDW 16.2 H Plt Count 95 L Lymph # 1.0 L Carbon Dioxide BUN Creatinine Glucose Uric Acid Calcium Meds: Medications Acetaminophen (Tylenol) 650 mg PO Q6HP PRN PRN Reason: PAIN/FEVER > 101 Acetaminophen/Hydrocodone Bitart ([place] 5/325mg) 1 tab PO Q4HP PRN PRN Reason: Pain Albuterol/Ipratropium (Duoneb) 3 ml NEB [id number] PRN PRN Reason: Shortness Of Breath Or Wheezing Carbidopa/Levodopa (Sinemet 25/100) 1 tab PO TID [facility] Last Admin: 09/13/16 07:36 Dose: 1 tab Dextrose (Dextrose 50%) 0 ml IV UD PRN PRN Reason: Hypoglycemia Diagnostic Test (Pha) (Accu-Chek) 1 each FS ACHS [facility] Last Admin: 09/13/16 11:58 Dose: 1 each Finasteride (Proscar) 5 mg PO HS [facility] Last Admin: 09/12/16 20:19 Dose: 5 mg Heparin Sodium (Porcine) (Heparin) 5,000 unit SQ Q12 [facility] Last Admin: 09/13/16 07:35 Dose: 5,000 unit Norepinephrine Bitartrate 16 (mg/ Sodium Chloride) 250 mls @ 9.37 mls/hr IV Q24HP PRN; Protocol; 10 MCG/MIN PRN Reason: TITRATE TO KEEP MAP > 65 Sodium Chloride (Sodium Chloride 0.9%) 250 mls @ 20 mls/hr IV .[id number] [facility] Last Admin: 09/13/16 06:24 Dose: Not Given Ceftriaxone Sodium 2 gm/ (Dextrose) 50 mls @ 100 mls/hr IV DAILY [facility] Last Infusion: 09/13/16 11:20 Dose: Infused Sodium Chloride (Sodium Chloride 0.9%) 250 mls @ 20 mls/hr IV .[id number] [facility] Last Admin: 09/13/16 06:24 Dose: Not Given Sodium Chloride (Sodium Chloride 0.9%) 1,000 mls @ 75 mls/hr IV .[id number] [facility] Last Admin: 09/13/16 00:16 Dose: 75 mls/hr Insulin Glargine (Lantus) 10 unit SQ [facility] Last Admin: 09/12/16 20:18 Dose: 10 unit Insulin Human Lispro (Humalog) 0 unit SQ [facility] PRN Reason: Protocol Last Admin: 09/13/16 11:58 Dose: 1 unit Naloxone HCl (Narcan) 0.1 mg IV Q2MIN PRN PRN Reason: Opiate Reversal Ondansetron HCl (Zofran) 4 mg IV Q4HP PRN PRN Reason: Nausea And Vomiting Pantoprazole Sodium (Protonix) 40 mg PO BIDAC [facility] Last Admin: 09/13/16 08:08 Dose: 40 mg Senna (Senokot) 2 tab PO HSP PRN PRN Reason: Constipation Sertraline HCl (Zoloft) 100 mg PO [facility] Last Admin: 09/12/16 20:19 Dose: 100 mg Tamsulosin HCl (Flomax) 0.4 mg PO DAILY [facility] Last Admin: 09/13/16 07:36 Dose: 0.4 mg Medical - PN: A/P - Time Spent With Patient Total time spent is greater than 50% in coordination of care (as documented) at patient's floor/unit and/or counseling patient: - Narrative A/P Narrative: Urinary tract Infection: Treat with IV Rocephin, await cultures pending. Sepsis with hypotension: Bp improving, always has low normal bp, hold anti hypertensive meds for now, will resume if bp goes up. Dementia/ Parkinson disease: Resume home meds, fall risk. CAD/ CHF : S/p CABG, : stable at this time. Hypertensive meds on hold, diuretics on hold BPH : Resume home meds finasteride and Flomax, Reyes in place DM: Lantus 10 units, Sliding scale insulin, glucose at goal. Acute on chr renal failure: creat improved, Will change NS to 0.5NS at 50cc /hr for gentle hydration. Code DNR Diet Cardiac, Mech soft, Diabetic, ST eval awaited. OT/ PT eval Prognosis: Guarded, if remains stable can be discharged back to snf likely on wednesday. Xfer to med surg status. Medical - PN: Qual - VTE Deep Vein Thrombosis/Pulmonary Embolism Present on Admission: No
[2016-09-13] MEDS ORDERED: HYDROcodone/APAP 5/325MG TABLET PO PRN (14:41)
[2016-09-13] MEDS ORDERED: NALOXONE HCL 0.4 MG/ML VIAL IV PRN (14:41)
[2016-09-13] MEDS ORDERED: DEXTROSE 50% 50 ML VIAL IV PRN (14:41)
[2016-09-13] MEDS ORDERED: NOREPINEPHRINE BITARTRATE 16 MG in 0.9 % SODIUM CHLORIDE 234 ML IV PRN (14:41)
[2016-09-13] MEDS ORDERED: ACETAMINOPHEN 325 MG TABLET PO PRN (14:41)
[2016-09-13] MEDS ORDERED: 0.9 % SODIUM CHLORIDE 250 ML IV SCH ×3 (14:41)
[2016-09-13] MEDS ORDERED: SENNOSIDES 1 TABLET PO PRN (14:41)
[2016-09-13] MEDS ORDERED: ONDANSETRON 4 MG/2 ML VIAL IV PRN (14:41)
[2016-09-13] MEDS: 0.45 % SODIUM CHLORIDE 1,000 ML IV SCH (15:07)
[2016-09-13] MEDS: SERTRALINE 50 MG TABLET PO SCH (21:02)
[2016-09-13] MEDS: FINASTERIDE 5 MG TABLET PO SCH (21:03)
[2016-09-13] MEDS: INSULIN GLARGINE, HUMAN 1 UNIT/0.01 ML SQ SCH ×2 (21:04→21:26)
[2016-09-14 06:38] LABS: Basophils # (Auto) 0 K/mcL (0.0-0.3); Basophils % (Auto) 0.3 % (0.0-2.0); Eosinophils # (Auto) 0.2 K/mcL (0.0-0.7); Eosinophils % (Auto) 3.2 % (0.0-7.0); Granulocytes % (Auto) 69.5 % (38.0-78.0); Lymphocytes # (Auto) 0.8 K/mcL (1.5-4.8); Lymphocytes % (Auto) 15.7 % (15.5-49.0); Mean Cell Volume 91.9 fL (80.0-100.0); Mean Corpuscular HGB Conc 33.6 g/dL (31.0-36.0); Mean Corpuscular Hemoglobin 30.9 pg (26.0-34.0); Monocytes # (Auto) 0.6 K/mcL (0.1-0.9); Monocytes % (Auto) 11.3 % (1.0-12.0); Platelet Count 96 K/mcL (140-440); RBC 3.05 M/mcL (4.50-5.90); Red Cell Distribution Width 16.2 % (11.5-14.5)
[2016-09-14] MEDS: PANTOPRAZOLE 40 MG TABLET PO SCH ×2 (06:53→16:56)
[2016-09-14 06:57] LABS: ALT/SGPT < 5 U/l (0-40); Albumin 3.5 gm/dL (3.2-5.2); Albumin/Globulin Ratio 1.4 (1.0-2.3); Alkaline Phosphatase 83 U/L (39-117); Bilirubin,Direct < 0.2 mg/dL (0.0-0.3); Blood Urea Nitrogen 59 mg/dl (8-23); Gamma Glutamyl Transpeptidase 15 U/L (8-61); Magnesium 1.6 mg/dL (1.6-2.5); Uric Acid 8.8 mg/dL (2.5-8.0)
[2016-09-14] MEDS: INSULIN LISPRO 1 UNIT/0.01 ML UNIT SQ SCH ×5 (07:03→20:18)
[2016-09-14] MEDS: 0.45 % SODIUM CHLORIDE 1,000 ML IV SCH ×2 (07:40→11:40)
[2016-09-14] MEDS: CARBIDOPA/LEVODOPA 25/100 TABLET PO SCH ×3 (09:34→20:15)
[2016-09-14] MEDS: cefTRIAXone 2 GM in DEXTROSE 5% IN WATER 50 ML IV SCH (09:34)
[2016-09-14] MEDS: TAMSULOSIN 0.4 MG CAPSULE PO SCH (09:34)
[2016-09-14] MEDS: HEPARIN 5,000 UNIT/ML VIAL SQ SCH ×2 (09:35→20:15)
--- NOTE | 2016-09-14 16:16 | Internal Med Progress Note ---
Medical - PN: Subj Patient information: Note initiated : 09/14/16 at 4:16 pm Service Date, if different from initiated Date: [] Patient: Kwame Oconnor y/o M admitted on 09/11/16 for increased confusion, hypotensive. Chief Complaint: [] Interval history: September 11, 2016: History of present illness: Mr. Oconnor is a year old male with multiple medical issues, CKD< DM< HTN, HLD , Parkinson disease, Dementia[place], [facility] and noted to have worsening creat and hypotension. The patient also has altered mentation, and was therefore sent to the ER The patient is demented and did not complain of any problem, the patients daughter who reports herself to be POA notes that she was called by the nephrology clinc and given an update on his condition noting that he was being sent to the ER. She noted that the patient is DNR and did not want any aggressive interventions, the patient is ok with antibiotics and meds through peripheral line, but declined central line, or intubation, BIPAP ok. She notes that patient at baseline can talk and crack jokes, but is demented. In the ER the patient was noted to be confused, hypotensive, his CXR suggestive for possible chf, ua positive for UTI, normal lactate. Patient was given IV fluids, IV levofloxacin and was admitted to the hospital for further management. 09/12: Patient seen examined, awake and obeys some commands, answers some questions, not much change since yesterday in terms of his mental status, he continues to be on IV fluids and IV antibiotics. BP is stable but low normal off his home meds, his oxygen sats 100% on room air. Renal function deteriorated mildly. Patient did not need pressors. 09/13 Pt seen examined, demented, but answers some questions, did not answer any question to me today, remains at near baseline. his renal function is better, his bp is tenous, but always has had low normal bp, the patient is off oxygen and lying comfortably in bed. he had some aggressive behavoiour towards the female staff yesterday. The patient is stable to be moved to [facility] surg Plan to d/c in AM or day after (given long weekend) back to his NH September 14: The patient had some agitation last night He alsowas verbally and physically abusive towards the physical therapist today. -he remains confused, and cannot explain to me why he has a Reyes catheter. He denies fever or chills, chest pain or shortness of breath, abdominal pain, nausea or vomiting or diarrhea, but history is clearly unreliable. -The patient's daughter has stated that the patient does not want aggressive intervention for his renal failure or other issues. We are continuing to treat for a urinary tract infection. Hypotension has improved with IV fluids. Urine culture is growing Proteus which is sensitive to cefazolin, but resistant to ciprofloxacin, ampicillin, Macrobid, Bactrim. - Constitutional Vitals: Vital Signs Temp Pulse Resp BP Pulse Ox 98.2 F 65 16 119/76 98 09/14/16 16:00 09/13/16 23:33 09/14/16 16:00 09/14/16 16:00 09/14/16 16:00 Period Temp Pulse Resp BP Sys/Campbell Pulse Ox Last 24 Hr 97.2 F-98.4 F 65-73 16-20 95-129/52-78 92-99 Intake and Output 09/14/16 09/14/16 09/14/16 05:59 13:59 21:59 Intake Total 100 / 100 150 / 150 Output Total 1550 / 1550 750 / 750 Balance -1450 / -1450 -600 / -600 Intake & Output: Intake & Output 09/14/16 09/14/16 09/14/16 05:59 13:59 21:59 Intake Total 100 / 100 150 / 150 Output Total 1550 / 1550 750 / 750 Balance -1450 / -1450 -600 / -600 Intake: Oral 100 / 100 150 / 150 Output: Urine Catheter Amount 1550 / 1550 750 / 750 Other: Meal Breakfast Percent of Meal Consumed 100% Feeding Ability Assist with Tray Set Up n exam, he is sitting in his bed, in no acute distress. He remains quite confused. He tugs on his Reyes catheter repeatedly but cannot explain to me what it is. Neck shows no obvious lymphadenopathy or JVD, and appears supple. Cardiac exam shows regular rate and rhythm. Lungsscattered crackles, but otherwise are clear. Abdomen: Is soft and nontender. Reyes catheter is draining clear yellow urine. Extremities: Show no significant edema. Neurologic; Patient is alert and calm at the moment. He seems quite confused. Motor exam is grossly nonfocal. he did apparently have an evaluation with speech therapy, and they feel he can handle a regular diet with thin liquids. Medical - PN: Obj Da - Labs CBC & Chem 7: 09/14/16 05:15 09/14/16 05:15 Labs: Abnormal Lab Results 09/14/16 09/14/16 09/13/16 05:15 05:15 04:05 RBC 3.05 L Hgb 9.4 L Hct 28.0 L RDW 16.2 H Plt Count 96 L Lymph # 0.8 L Carbon Dioxide 21 L BUN 59 H 74 H Creatinine 3.3 H 4.0 H Glucose 107 H 155 H Uric Acid 8.8 H 9.9 H Calcium 8.5 L 09/13/16 09/12/16 09/12/16 04:05 04:05 04:05 RBC 2.94 L 3.08 L Hgb 9.1 L 9.6 L Hct 26.6 L 28.0 L RDW 16.5 H 16.2 H Plt Count 89 L 95 L Lymph # 1.0 L 1.0 L Carbon Dioxide BUN 82 H Creatinine 4.3 H Glucose 112 H Uric Acid 10.6 H Calcium troponin from September 11was normal. Urinalysis from Augusthowed 30 g of protein, 500 of leukocyte esterase, greater than 182 white blood cells, negative nitrates. urine culture grew Proteus mirabilis, resistant to ampicillin and Augmentin Cipro, gentamicin, Levaquin, nitrofurantoin, tetracycline, Bactrim. Sensitive to aztreonam, cefazolin, cefepime, ceftriaxone, cefuroxime, meropenem, Zosyn blood cultures are negative so far MRSA screen was negative Meds: Medications Acetaminophen (Tylenol) 650 mg PO Q6HP PRN PRN Reason: PAIN/FEVER > 101 Acetaminophen/Hydrocodone Bitart ([place] 5/325mg) 1 tab PO Q4HP PRN PRN Reason: Pain Albuterol/Ipratropium (Duoneb) 3 ml NEB [id number] PRN PRN Reason: Shortness Of Breath Or Wheezing Carbidopa/Levodopa (Sinemet 25/100) 1 tab PO TID [facility] Last Admin: 09/14/16 15:57 Dose: 1 tab Dextrose (Dextrose 50%) 0 ml IV UD PRN PRN Reason: Hypoglycemia Diagnostic Test (Pha) (Accu-Chek) 1 each FS ACHS [facility] Last Admin: 09/14/16 11:39 Dose: 1 each Finasteride (Proscar) 5 mg PO HS [facility] Last Admin: 09/13/16 21:03 Dose: 5 mg Heparin Sodium (Porcine) (Heparin) 5,000 unit SQ Q12 [facility] Last Admin: 09/14/16 09:35 Dose: Not Given Ceftriaxone Sodium 2 gm/ (Dextrose) 50 mls @ 100 mls/hr IV Q24H [facility] Last Admin: 09/14/16 09:34 Dose: 100 mls/hr Norepinephrine Bitartrate 16 (mg/ Sodium Chloride) 250 mls @ 9.37 mls/hr IV Q24HP PRN; Protocol; 10 MCG/MIN PRN Reason: TITRATE TO KEEP MAP > 65 Sodium Chloride (Sodium Chloride 0.45%) 1,000 mls @ 50 mls/hr IV .Q20H [facility] Stop: 09/16/16 00:29 Last Admin: 09/14/16 11:40 Dose: Not Given Insulin Glargine (Lantus) 10 unit SQ [facility] Last Admin: 09/13/16 21:26 Dose: 10 unit Insulin Human Lispro (Humalog) 0 unit SQ [facility] PRN Reason: Protocol Last Admin: 09/14/16 12:31 Dose: 3 unit Naloxone HCl (Narcan) 0.1 mg IV Q2MIN PRN PRN Reason: Opiate Reversal Ondansetron HCl (Zofran) 4 mg IV Q4HP PRN PRN Reason: Nausea And Vomiting Pantoprazole Sodium (Protonix) 40 mg PO BIDAC [facility] Last Admin: 09/14/16 06:53 Dose: 40 mg Senna (Senokot) 2 tab PO HSP PRN PRN Reason: Constipation Sertraline HCl (Zoloft) 100 mg PO HS [facility] Last Admin: 09/13/16 21:02 Dose: 100 mg Tamsulosin HCl (Flomax) 0.4 mg PO DAILY [facility] Last Admin: 09/14/16 09:34 Dose: 0.4 mg Medical - PN: A/P - Time Spent With Patient Total time spent is greater than 50% in coordination of care (as documented) at patient's floor/unit and/or counseling patient: - Narrative A/P Narrative: #1.Urinary tract Infection: Proteus, sensitive to Rocephin. Continue for now. Perhaps switch over to oral cephalosporin at discharge. #2.Sepsis with hypotension: improved. Metolazone discontinued. #3.Dementia/ Parkinson disease: Resume home meds, fall risk. -patient continues with some behavior issues. #4.CAD/ CHF : S/p CABG, : stable at this time. Hypertensive meds on hold, diuretics on hold #5.BPH : Resume home meds finasteride and Flomax, Reyes in place #6.DM: Lantus 10 units, Sliding scale insulin, glucose is running 100-200 range. #7.Acute on chr renal failure: creat improved, continue gentle IV hydration for now. Encourage by mouth intake. #8.Code status: DNR 39. Anemia, chronic. Near baseline. Diet Cardiac, Mech soft, Diabetic, ST eval awaited. OT/ PT eval Prognosis: Guarded, if remains stable can be discharged back to snf . this visit took approximately 25 minutes today, to review patient's chart and test results, review plan of care with nursing staff, interview and examine him , and write orders. Medical - PN: Qual - VTE Deep Vein Thrombosis/Pulmonary Embolism Present on Admission: No
[2016-09-14] MEDS: FINASTERIDE 5 MG TABLET PO SCH (20:14)
[2016-09-14] MEDS: SERTRALINE 50 MG TABLET PO SCH (20:15)
[2016-09-14] MEDS: INSULIN GLARGINE, HUMAN 1 UNIT/0.01 ML SQ SCH (20:15)
[2016-09-15] MEDS: 0.45 % SODIUM CHLORIDE 1,000 ML IV SCH ×2 (04:26→08:44)
[2016-09-15 04:45] LABS: Basophils # (Auto) 0 K/mcL (0.0-0.3); Basophils % (Auto) 0.4 % (0.0-2.0); Eosinophils # (Auto) 0.1 K/mcL (0.0-0.7); Eosinophils % (Auto) 2.5 % (0.0-7.0); Lymphocytes % (Auto) 17.4 % (15.5-49.0); Mean Cell Volume 91.3 fL (80.0-100.0); Mean Corpuscular HGB Conc 34.4 g/dL (31.0-36.0); Mean Corpuscular Hemoglobin 31.4 pg (26.0-34.0); Monocytes # (Auto) 0.5 K/mcL (0.1-0.9); Monocytes % (Auto) 9.7 % (1.0-12.0); Platelet Count 94 K/mcL (140-440); RBC 3.16 M/mcL (4.50-5.90); Red Cell Distribution Width 16.1 % (11.5-14.5)
[2016-09-15 05:09] LABS: ALT/SGPT < 5 U/l (0-40); Albumin 3.6 gm/dL (3.2-5.2); Albumin/Globulin Ratio 1.3 (1.0-2.3); Alkaline Phosphatase 85 U/L (39-117); Bilirubin,Direct < 0.2 mg/dL (0.0-0.3); Blood Urea Nitrogen 52 mg/dl (8-23); Gamma Glutamyl Transpeptidase 16 U/L (8-61); Magnesium 1.5 mg/dL (1.6-2.5)
[2016-09-15] MEDS: INSULIN LISPRO 1 UNIT/0.01 ML UNIT SQ SCH (08:43)
[2016-09-15] MEDS: PANTOPRAZOLE 40 MG TABLET PO SCH (09:16)
[2016-09-15] MEDS: TAMSULOSIN 0.4 MG CAPSULE PO SCH (09:16)
[2016-09-15] MEDS: CARBIDOPA/LEVODOPA 25/100 TABLET PO SCH (09:16)
[2016-09-15] MEDS: HEPARIN 5,000 UNIT/ML VIAL SQ SCH (09:16)
[2016-09-15] MEDS: cefTRIAXone 2 GM in DEXTROSE 5% IN WATER 50 ML IV SCH (09:17)
--- NOTE | 2016-09-15 09:47 | Discharge Summary ---
Medical - DS: Prov Patient information: Note initiated : 09/15/16 at 9:36 am Service Date, if different from initiated Date: [] Patient: Kwame Oconnor y/o M admitted on 09/11/16 for increased confusion, hypotensive. Chief Complaint: [] Date of admission: 09/11/16 16:25 Discharge date: 09/15/16 Primary care physician: Leander Porras telephone #[phone] Admitting clinician: Elizabeth Crain Attending physician on discharge: Jesusita Real Medical - DS: Meds - Discharge Medications Prescriptions: Cephalexin [Keflex] 250 mg PO QIDP #24 capsule Omeprazole [Prilosec] 40 mg PO BIDAC #1 capsule Active and Home Medications: discharge medications: Keflex 250 mg by mouth 4 times a day 6 days sinemet 13330 by mouth 3 times a day Vitamin D 50,000 units by mouthtwice a week Lasix 40 mg daily Lantus 10 units subcutaneous daily at bedtime Ducolax suppository 10 mg when necessary [id number] mg daily Magnesium oxide 425 mg daily Artificial tears 4 times a day when necessary Senna17 mg twice a day Aspirin 81 mg daily Bisacodyl 5 mg by mouth daily when necessary Coreg 3.125 mg twice a day Finasteride 5 mg by mouth daily at bedtime Omeprazole 40 mg by mouth twice a day Zofran 4 mg by mouth every 8 hours when necessary Promethazine 25 mg by mouthdaily when necessary Flomax 0.4 mg daily Vitamin C plus vitamin E and leutine (eye cap) 1 daily Sertraline 100 mg daily at bedtime Home Medications carbidopa 25 mg-levodopa 100 mg tablet 1 tab PO TID 06/11/16 [History Confirmed 09/11/16 Last Taken Unknown] ergocalciferol (vitamin D2) 50,000 unit capsule 50,000 unit PO MOTH@0900 [History Confirmed 09/11/16 Last Taken Unknown] furosemide 40 mg tablet 40 mg PO DAILY 06/11/16 [History Confirmed 09/11/16 Last Taken Unknown] insulin glargine 100 unit/mL subcutaneous solution 37 unit SUB-Q QAM ml [History Confirmed 09/11/16 Last Taken Unknown] metolazone 2.5 mg tablet 2.5 mg PO MOTH@0830 06/11/16 [History Confirmed Last Taken Unknown]---discontinued Bisacodyl [Dulcolax] 10 mg KS DAILYP PRN 09/11/16 [History Confirmed 09/11/16 Last Taken Unknown] Isosorbide Mononitrate [Isosorbide Mononitrate ER] 120 mg PO DAILY 09/11/16 [ History Confirmed 09/11/16 Last Taken Unknown] Magnesium Oxide 420 mg PO DAILY 09/11/16 [History Confirmed 09/11/16 Last Taken Unknown] Polyvinyl Alcohol [Artificial Tears] 1 drop OP QIDP PRN 09/11/16 [History Confirmed 09/11/16 Last Taken Unknown] Sennosides [Senna] 17.2 mg PO BID 09/11/16 [History Confirmed 09/11/16 Last Taken Unknown] aspirin 81 mg tablet,delayed release 81 mg PO QDAY tab 09/11/16 [History Confirmed 09/11/16 Last Taken Unknown] bisacodyl 5 mg tablet 5 mg PO DAILYP PRN 09/11/16 [History Confirmed 09/11/16 Last Taken Unknown] carvedilol 3.125 mg tablet 6.25 mg PO BIDCC tab 09/11/16 [History Confirmed Last Taken Unknown] finasteride 5 mg tablet 5 mg PO HS 09/11/16 [History Confirmed 09/11/16 Last Taken Unknown] lisinopril 2.5 mg tablet 2.5 mg PO QDAY 09/11/16 [History Confirmed 09/11/16 Last Taken Unknown]--discontinue. omeprazole 40 mg capsule,delayed release 40 mg PO BIDAC cap 09/11/16 [History Confirmed 09/11/16 Last Taken Unknown] ondansetron HCl 4 mg tablet 4 mg PO Q8HP PRN tab 09/11/16 [History Confirmed Last Taken Unknown] promethazine 25 mg tablet 25 mg PO DAILYP PRN tab 09/11/16 [History Confirmed 09/11/16 Last Taken Unknown] sertraline 100 mg tablet 100 mg PO HS 09/11/16 [History Confirmed 09/11/16 Last Taken Unknown] tamsulosin 0.4 mg capsule 0.4 mg PO DAILY 09/11/16 [History Confirmed 09/11/16 Last Taken Unknown] vit C 150 mg-vit E 30 unit-lutein 5 ot-[id number]-[id number] 3 150 mg capsule 1 cap PO DAILY 09/11/16 [History Confirmed 09/11/16 Last Taken Unknown] Medical - DS: Hosp Hospital course: Mr. Oconnor is a year old male September 11, 2016: History of present illness: Mr. Oconnor is a year old male with multiple medical issues, CKD< DM< HTN, HLD , Parkinson disease, Dementia, [facility] [place], [facility] and noted to have worsening creat and hypotension. The patient also has altered mentation, and was therefore sent to the ER The patient is demented and did not complain of any problem, the patients daughter who reports herself to be POA notes that she was called by the nephrology clinc and given an update on his condition noting that he was being sent to the ER. She noted that the patient is DNR and did not want any aggressive interventions, the patient is ok with antibiotics and meds through peripheral line, but declined central line, or intubation, BIPAP ok. She notes that patient at baseline can talk and crack jokes, but is demented. In the ER the patient was noted to be confused, hypotensive, his CXR suggestive for possible chf, ua positive for UTI, normal lactate. Patient was given IV fluids, IV levofloxacin and was admitted to the hospital for further management. 09/12: Patient seen examined, awake and obeys some commands, answers some questions, not much change since yesterday in terms of his mental status, he continues to be on IV fluids and IV antibiotics. BP is stable but low normal off his home meds, his oxygen sats 100% on room air. Renal function deteriorated mildly. Patient did not need pressors. 09/13 Pt seen examined, demented, but answers some questions, did not answer any question to me today, remains at near baseline. his renal function is better, his bp is tenous, but always has had low normal bp, the patient is off oxygen and lying comfortably in bed. he had some aggressive behavoiour towards the female staff yesterday. The patient is stable to be moved to [facility] Plan to d/c in AM or day after (given long weekend) back to his NH September 14: The patient had some agitation last night He also was verbally and physically abusive towards the physical therapist today. -he remains confused, and cannot explain to me why he has a Nava catheter. He denies fever or chills, chest pain or shortness of breath, abdominal pain, nausea or vomiting or diarrhea, but history is clearly unreliable. -The patient's daughter has stated that the patient does not want aggressive intervention for his renal failure or other issues. We are continuing to treat for a urinary tract infection. Hypotension has improved with IV fluids. Urine culture is growing Proteus which is sensitive to cefazolin, but resistant to ciprofloxacin, ampicillin, Macrobid, Bactrim. September 15: hospital course: mister Oliveros admitted with depressed mental status, urinary tract infection , cute on chronic renal failure, hypotension. He was started on IV fluids and IV antibiotics, and has steadily improved since then. -Urine culture is growing Proteus which is resistant to Cipro, ampicillin, Macrobid, Bactrim, but sensitive to all otherantibiotics tested. He has now had days of IV antibiotics and I think can safely be switched to an oral cephalosporin today. He should probably complete a ten-day course. Nava catheter was placed in the emergency room,and I am not certain as to why. We will plan on removing the Nava catheter today but postvoid residual should be checked at least a few times. -he was also seen by our director of recruiting, Dr. Horta, who suggested stopping the metolazone and then resuming most other blood pressure medications, as blood pressure tolerates. She agreed he would not be a good dialysis candidate, and the patient and his family do not wish him to pursuedialysis. -The patient has dementia, so cannot really participate in the conversation, but the family does not want aggressive interventions, and believe that's ith the patientwishes as well. -Lantus dose was decreased and blood glucoses have been well controlled. -the patient has become agitated and aggressive at times, but then tends to settle down again and become more cooperative. He seems more aggressive towards female staff. exam: today, he is sitting up in bed, and an aide is feeding him. He is in no acute distress. neck is supple without obvious JVD. Cardiac exam shows regular rate and rhythm. ungs are essentially clear to auscultation. Abdomen is soft and nontender. Nava catheter is draining clear yellow urine. Extremities; Show no significant edema. Neurologic: The patient is alert and calm, but not fully oriented. Motor exam is grossly nonfocal. Her speech therapy, he is able to eat a regular diet with thin liquids. Assessment and plan: #1.Urinary tract Infection: Proteus, sensitive to Rocephin. -change Rocephin to by mouth Keflex at discharge, for 6 days. #2.Sepsis with hypotension: resolved. Metolazone discontinued. #3.Dementia/ Parkinson disease: Resumed home meds, fall risk. -patient continues with some behavior issues. i believe these have been managed without medications. #4.CAD/ CHF : S/p CABG, : stable at this time. -Resume Lasix Isordil, Coreg aspirin. Metolazone was discontinued. #5.BPH : Resume home meds finasteride and Flomax, Nava in place. nava catheter can be removed today, and postvoid residual should be checked2-3 times. He should follow this issue up with his PCP. #6.DM: -lantus was decreased to 10 units subcutaneousdaily at bedtime. glucoses have been reasonably well controlled. Continue diabetic diet, regular textures, thin liquids. #7.Acute on chr renal failure: improved after hydration. Discontinue metolazone, per nephrology. Encourage oral intake of fluids. #8.Code status: DNR #9. Anemia, chronic. Near baseline. #10. Platelet count has been running low, in the 80s and 90s. This may be due to heparin. This [facility] be [facility]hecked at the [facility]. OT/ PT eval Prognosis: Guarded, but now stabilized, can be discharged back to [facility] . today's visit took approximately 35 minutes, to review the patient's chart, interview and examine him, review plan of care with staff and also at the multidisciplinary team meeting, and write orders. Discharge diagnosis: urinary tract infection, early sepsis, dementia, Parkinson' s disease - Time Spent with Patient Total time spent providing and/or coordinating discharge services: Medical - DS: Exam - Constitutional Vitals: Vital Signs Temp Pulse Resp BP Pulse Ox 09/15/16 07:30 98.3 F 16 118/67 94 09/15/16 07:15 94 09/15/16 03:51 97.9 F 76 20 127/67 96 09/15/16 00:00 97.7 F 83 20 111/63 96 09/14/16 19:22 98.5 F 71 20 105/63 93 09/14/16 16:00 98.2 F 16 119/76 98 09/14/16 11:50 98.4 F 18 120/63 92 Intake and Output 09/14/16 09/15/16 09/15/16 21:59 05:59 13:59 Intake Total 700 / 700 1000 / 1000 50 / 50 Output Total 325 / 325 925 / 925 Balance 375 / 375 75 / 75 50 / 50 Intake: IV 1000 / 1000 Sodium Chloride 0.45% 1, 1000 / 1000 000 ml @ 50 mls/hr IV . Q20H [facility] Rx#:[id number] Oral 700 / 700 0 / 0 50 / 50 Output: Urine Catheter Amount 325 / 325 925 / 925 Other: Meal [place] Breakfast Percent of Meal Consumed 100% 75% Feeding Ability Independent Assist with Tray Set Up Weight 252 lb 8 oz Medical - DS: Data Labs on day of discharge: Labs from last 24 hours 09/15/16 09/15/16 03:40 03:40 WBC 5.6 RBC 3.16 L Hgb 9.9 L Hct 28.8 L MCV 91.3 MCH 31.4 MCHC 34.4 RDW 16.1 H Plt Count 94 L MPV 7.5 Gran % 70.0 Lymph % (Auto) 17.4 [place] % (Auto) 9.7 Eos % (Auto) 2.5 Baso % (Auto) 0.4 Gran # 3.9 Lymph # 1.0 L [place] # 0.5 Eos # 0.1 Baso # 0 Sodium 138 Potassium 4.9 Chloride 100 Carbon Dioxide 22 Anion Gap 16.0 BUN 52 H Creatinine 2.9 H GFR Calculation 18 Glucose 127 H Uric Acid 8.0 Calcium 9.0 Phosphorus 2.9 Magnesium 1.5 L Total Bilirubin 0.3 Direct Bilirubin < 0.2 GGT 16 AST 9 ALT < 5 Alkaline Phosphatase 85 Lactate Dehydrogenase 188 Total Protein 6.3 Albumin 3.6 Globulin 2.7 Albumin/Globulin Ratio 1.3 Triglycerides 108 troponin from September 11was normal. lactic acid on admission was normal at 1.0 Urinalysis from August 26showed 30 g of protein, 500 of leukocyte esterase, greater than 182 white blood cells, negative nitrates. urine culture grew Proteus mirabilis, resistant to ampicillin and Augmentin Cipro, gentamicin, Levaquin, nitrofurantoin, tetracycline, Bactrim. Sensitive to aztreonam, cefazolin, cefepime, ceftriaxone, cefuroxime, meropenem, Zosyn blood cultures are negative so far MRSA screen was negative nasal MRSA screen was negative. 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 hest x-ray from September 11:Showed markedly cardiomegaly and sternotomy changes. Mild pulmonary vessel distention. Borderline CHF minor right basilar atelectasis. Medical - DS: A/P - Patient/Caregiver Discharge Instructions Activity: as per physical therapy Diet: Renal/Consistent Carbs Prescriptions: Cephalexin [Keflex] 250 mg PO QIDP #24 capsule Omeprazole [Prilosec] 40 mg PO BIDAC #1 capsule - Follow up Plan Follow up with: Leander Porras MD [Primary Care Provider] - (Call to set up a hospital follow up.) Disposition: [facility] Prognosis: Fair Rehab Potential: Fair Overall status at discharge: patient is progressing back to baseline Medical - DS: Qual - VTE Deep Vein Thrombosis/Pulmonary Embolism Present on Admission: No
== END 2016-09-15 11:10 | DRG 872 ==
LOC: ED 11:55 → SUATTDRO 16:25 → ICU 16:25 → MEDSUR 09-13 14:20
PROVIDERS: ADMIT Internal Medicine; ATTEND Internal Medicine